=== PATIENT | male | born 1955 | race Caucasian/White ===

== ENCOUNTER 2016-04-13 17:11 | Emergency (ER) | payer BC ==
[2016-04-13] MEDS ORDERED: KETOROLAC 60 MG/2 ML VIAL IM ONE (18:56)
[2016-04-13] MEDS ORDERED: DEXAMETHASONE 4 MG/ML VIAL ONE (18:56)
[2016-04-13] MEDS ORDERED: CYCLOBENZAPRINE 10 MG TAB ONE (18:57)
== END 2016-04-13 20:10 | disposition home or self-care (01) ==
LOC: ER 17:11
DX: S39.012A Strain of muscle, fascia and tendon of lower back, initial encounter (principal); M54.32 Sciatica, left side
CPT/HCPCS: 96372